=== PATIENT | female | born 1980 | race Caucasian/White ===

== ENCOUNTER 2018-09-24 10:40 | Emergency (ER) | payer SELFPAY ==
[2018-09-24 10:47] VITALS: BP 115/65; PULSE 65; TEMP 98.4; BMI 27.4
--- NOTE | 2018-09-24 11:44 | PDOC ---
History of Present Illness - General Chief Complaint: Ear Problem Stated Complaint: LT EAR PAIN Time Seen by Provider: 09/24/18 11:22 - History of Present Illness Initial Comments: 09/24/18 11:41 37-year-old female presents for evaluation of left ear pain 7 days without systemic symptoms Past History - Past Medical History Allergies/Adverse Reactions: Allergies Allergy/AdvReac Type Severity Reaction Status Date / Time No Known Allergies Allergy Verified 09/24/18 10:43 Home Medications: Ambulatory Orders Ciprofloxacin HCl/Dexameth [Ciprodex Otic Suspension] 4 drop BID 5 Days #1 bottle 09/24/18 COPD: No - Immunization History Immunization Up to Date: Yes - Suicide/Smoking/Psychosocial Hx Smoking History: Never smoked Hx Alcohol Use: No Drug/Substance Use Hx: No Review of Systems - Review of Systems Constitutional: No: Fever HEENTM: Yes: Ear Pain *Physical Exam - Vital Signs Last Vital Signs Temp Pulse Resp BP Pulse Ox 98.4 F 65 18 115/65 100 09/24/18 10:44 09/24/18 10:44 09/24/18 10:44 09/24/18 10:44 09/24/18 10:44 - Physical Exam Comments: 09/24/18 11:42 HEAD: NC/AT EYES: Conjuntiva clear Ears: Right ear canal tympanic membrane and normal. Left ear canal is normal tympanic membrane is mildly erythemic there appears to be a perforation at the 9 o'clock position NOSE: No d/c THROAT: Moist mucous membrances, oral pharanx clear, uvula midline NECK: Supple without adenopathy CARDIAC: S1 S2 LUNGS: CTA Full and Equal breath sounds ABDOMEN: Soft NT ND MS: Full ROM in all joints without edema NEUROLOGIC: No gross sensory or motor deficits, NVID SKIN: Normal color and temperature no lesions or rashes *DC/Admit/Observation/Transfer Diagnosis at time of Disposition: Tympanic membrane perforation - Discharge Dispostion Disposition: HOME Condition at time of disposition: Stable Decision to Admit order: No - Prescriptions Prescriptions: Ciprofloxacin HCl/Dexameth [Ciprodex Otic Suspension] 4 drop BID 5 Days #1 bottle - Referrals Referrals: Alec Yang MD [Staff Physician] - - Patient Instructions Printed Discharge Instructions: Ruptured Eardrum, DI for Tympanic Membrane Perforation-Adult Additional Instructions: Please use the antibiotic drops as directed. Return to the emergency room 1-2 days for further evaluation and treatment options should symptoms worsen. Follow -up with ear nose and throat doctor in 1-2 days without fail for further evaluation and treatment options. Print Language: GREEK - Post Discharge Activity
== END 2018-09-24 12:26 | disposition home or self-care (01) ==
LOC: JERFT 10:40
DX: H92.02 Otalgia, left ear (principal)
CPT/HCPCS: 99281-25

== ENCOUNTER 2021-05-18 18:30 | Emergency (ER) | payer OTHER ==
[2021-05-18 18:46] VITALS: BMI 24.9
[2021-05-18 21:25] LABS: BASO % 0.6 % (0-2.0); EOS % 2.5 % (0-4.5); HEMATOCRIT 41.9 % (32.4-45.2); HEMOGLOBIN 14.2 GM/dL (10.7-15.3); LYMPH % 35.7 % (8-40); MCH 30.8 pg (25.7-33.7); MCHC 33.8 g/dl (32.0-36.0); MEAN CELL VOLUME 90.9 fl (80-96); MEAN PLT VOLUME 7.2 fl (7.5-11.1); MONO % 6.3 % (3.8-10.2); NEUT % 54.9 % (42.8-82.8); PLATELET COUNT 306 10^3/uL (134-434); RBC 4.61 M/mm3 (3.60-5.2); RDW 13.5 % (11.6-15.6); WHITE BLOOD COUNT 8.6 K/mm3 (4.0-10.0)
[2021-05-18 21:33] LABS: EPI CELLS >36 /uL (0-25.1); HYALINE CASTS 1 /uL (0-3.1); PH,URINE 6.5 (5.0-8.0); URINE APPEARANCE CLOUDY; URINE BACTERIA 497 /uL (0-1359); URINE BILIRUBIN NEGATIVE (NEGATIVE); URINE COLOR YELLOW; URINE GLUCOSE (UA) NEGATIVE (NEGATIVE); URINE KETONE NEGATIVE (NEGATIVE); URINE LEUK ESTERASE 2+ (NEGATIVE); URINE NITRITE NEGATIVE (NEGATIVE); URINE PROTEIN NEGATIVE (NEGATIVE); URINE RBC 22 /uL (0-23.9); URINE UROBILINOGEN 0.2 mg/dL (0.2-1.0); URINE WBC 53 /uL (0-25.8)
[2021-05-18 21:54] LABS: CALCIUM 9.4 mg/dL (8.5-10.1)
[2021-05-18 21:55] LABS: ALBUMIN 3.9 g/dl (3.4-5.0); BLOOD UREA NITROGEN 17.9 mg/dL (7-18)
[2021-05-18 21:57] LABS: CREATININE 0.9 mg/dL (0.55-1.3)
[2021-05-18 21:59] LABS: BILIRUBIN,TOTAL 0.3 mg/dL (0.2-1); TOT PROT 7.5 g/dl (6.4-8.2)
[2021-05-19 00:35] VITALS: BP 125/79; PULSE 75; TEMP 98.3
== END 2021-05-19 00:35 | disposition home or self-care (01) ==
LOC: JER 18:30
DX: O26.851 Spotting complicating pregnancy, first trimester (principal); Z3A.00 Weeks of gestation of pregnancy not specified
CPT/HCPCS: 36415; 76817-TC; 80053; 81003; 84702; 85025; 86850; 86900; 86901; 87086; 87186; 99284-25

== ENCOUNTER 2021-05-20 09:16 | Emergency (ER) | payer OTHER ==
[2021-05-20 09:27] VITALS: TEMP 98.1; BMI 24.8
[2021-05-20] MEDS ORDERED: ACETAMINOPHEN 500 MG TABLET (FP) PO ONE (09:43)
[2021-05-20] MEDS ORDERED: ACETAMINOPHEN 325 MG TABLET (FP) ONE (10:01)
[2021-05-20 10:48] LABS: BASO % 0.5 % (0-2.0); EOS % 1.8 % (0-4.5); HEMATOCRIT 40.1 % (32.4-45.2); HEMOGLOBIN 13.9 GM/dL (10.7-15.3); LYMPH % 23.9 % (8-40); MCH 31.2 pg (25.7-33.7); MCHC 34.6 g/dl (32.0-36.0); MEAN CELL VOLUME 90.2 fl (80-96); MONO % 4.6 % (3.8-10.2); NEUT % 69.2 % (42.8-82.8); PLATELET COUNT 271 10^3/uL (134-434); RBC 4.45 M/mm3 (3.60-5.2); RDW 13.5 % (11.6-15.6); WHITE BLOOD COUNT 8.5 K/mm3 (4.0-10.0)
[2021-05-20] MEDS ORDERED: IBUPROFEN 400 MG TABLET (FP) PO ONE ×2 (13:08→13:13)
[2021-05-20] MEDS ORDERED: MISOPROSTOL 200 MCG TABLET PO ONE (13:30)
[2021-05-20 15:16] VITALS: BP 140/83; PULSE 83
== END 2021-05-20 14:30 | disposition home or self-care (01) ==
LOC: JER 09:16
DX: O20.9 Hemorrhage in early pregnancy, unspecified (principal); Z3A.10 10 weeks gestation of pregnancy
CPT/HCPCS: 36415; 76817-TC; 84702; 85025; 99284-25

== ENCOUNTER 2022-04-14 11:59 | Emergency (ER) | payer OTHER ==
[2022-04-14 12:12] VITALS: TEMP 97.7; BMI 27.6
[2022-04-14] MEDS ORDERED: LABETALOL HCL 100 MG TABLET (FP) PO ONE (13:01)
[2022-04-14] MEDS ORDERED: LABETALOL HCL 100 MG TABLET (FP) ONE (13:16)
[2022-04-14 13:53] LABS: BASO % 0.5 % (0-2.0); EOS % 0.6 % (0-4.5); HEMATOCRIT 39.5 % (32.4-45.2); HEMOGLOBIN 13.7 GM/dL (10.7-15.3); LYMPH % 21.3 % (8-40); MCH 31.7 pg (25.7-33.7); MCHC 34.7 g/dl (32.0-36.0); MEAN CELL VOLUME 91.3 fl (80-96); MEAN PLT VOLUME 7.6 fl (7.5-11.1); MONO % 5.3 % (3.8-10.2); NEUT % 72.3 % (42.8-82.8); PLATELET COUNT 323 10^3/uL (134-434); RBC 4.32 M/mm3 (3.60-5.2); RDW 13.4 % (11.6-15.6); WHITE BLOOD COUNT 11.5 K/mm3 (4.0-10.0)
[2022-04-14 14:02] LABS: INR 1.05 (0.83-1.09); PROTHROMBIN TIME (PATIENT) 12.2 SEC (9.7-13.0)
[2022-04-14 14:05] LABS: ACTIVATED PTT 28.7 SECONDS (25.2-36.5)
[2022-04-14 14:20] LABS: ALBUMIN 3.2 g/dl (3.4-5.0); BLOOD UREA NITROGEN 6.8 mg/dL (7-18); CALCIUM 9.4 mg/dL (8.5-10.1)
[2022-04-14 14:23] LABS: CREATININE 0.5 mg/dL (0.55-1.3)
[2022-04-14 14:25] LABS: BILIRUBIN,TOTAL 0.3 mg/dL (0.2-1); TOT PROT 7.1 g/dl (6.4-8.2)
[2022-04-14 15:27] LABS: EPI CELLS 17 /uL (0-25.1); HYALINE CASTS 0 /uL (0-3.1); PH,URINE 6.5 (5.0-8.0); URINE APPEARANCE CLEAR; URINE BACTERIA 710 /uL (0-1359); URINE BILIRUBIN NEGATIVE (NEGATIVE); URINE COLOR YELLOW; URINE GLUCOSE (UA) NEGATIVE (NEGATIVE); URINE KETONE NEGATIVE (NEGATIVE); URINE LEUK ESTERASE 2+ (NEGATIVE); URINE NITRITE NEGATIVE (NEGATIVE); URINE PROTEIN NEGATIVE (NEGATIVE); URINE RBC 13 /uL (0-23.9); URINE UROBILINOGEN 0.2 mg/dL (0.2-1.0); URINE WBC 31 /uL (0-25.8)
[2022-04-14 15:45] VITALS: BP 134/84; PULSE 87; RESP 18
== END 2022-04-14 16:31 | disposition home or self-care (01) ==
LOC: JER 11:59
DX: O16.2 Unspecified maternal hypertension, second trimester (principal); Z3A.16 16 weeks gestation of pregnancy
CPT/HCPCS: 36415; 76815-TC; 80053; 81003; 84443; 84702; 85025; 85610; 85730; 87086; 93005; 93010; 99285-25

== ENCOUNTER 2022-06-05 11:13 | Inpatient (IN) | payer OTHER ==
[2022-06-05] MEDS ORDERED: LACTATED RINGERS SOLUTION 1000 ML INFUS.BAG IV ONE ×2 (12:43→15:55)
[2022-06-05 13:40] LABS: HEMATOCRIT 37.9 % (32.4-45.2); HEMOGLOBIN 12.9 GM/dL (10.7-15.3); MCH 30.9 pg (25.7-33.7); MCHC 33.9 g/dl (32.0-36.0); MEAN PLT VOLUME 7.8 fl (7.5-11.1); PLATELET COUNT 280 10^3/uL (134-434); RBC 4.17 M/mm3 (3.60-5.2); RDW 13.1 % (11.6-15.6); WHITE BLOOD COUNT 15.9 K/mm3 (4.0-10.0)
[2022-06-05 14:08] LABS: CALCIUM 9.1 mg/dL (8.5-10.1)
[2022-06-05 14:09] LABS: ALBUMIN 2.8 g/dl (3.4-5.0); ANISOCYTOSIS 0; BLOOD UREA NITROGEN 8.1 mg/dL (7-18); HELMET CELLS 0; HOWELL-JOLLY BODIES 0; MACROCYTOSIS 0; OVALOCYTE 0; ROULEAU 0; SICKELED CELLS 0; TARGET CELLS 0; TEAR DROP CELLS 0; TOXIC GRANULATION 0
[2022-06-05 14:12] LABS: CREATININE 0.8 mg/dL (0.55-1.3)
[2022-06-05 14:13] LABS: TOT PROT 6.5 g/dl (6.4-8.2)
[2022-06-05 14:14] LABS: BILIRUBIN,TOTAL 0.4 mg/dL (0.2-1)
[2022-06-05 14:26] LABS: EPI CELLS 10 /uL (0-25.1); HYALINE CASTS 2 /uL (0-3.1); URINE APPEARANCE CLEAR; URINE BACTERIA >9,000 /uL (0-1359); URINE BILIRUBIN NEGATIVE (NEGATIVE); URINE COLOR YELLOW; URINE GLUCOSE (UA) NEGATIVE (NEGATIVE); URINE KETONE TRACE (NEGATIVE); URINE LEUK ESTERASE 2+ (NEGATIVE); URINE NITRITE POSITIVE (NEGATIVE); URINE PROTEIN NEGATIVE (NEGATIVE); URINE RBC 72 /uL (0-23.9); URINE UROBILINOGEN 0.2 mg/dL (0.2-1.0); URINE WBC 800 /uL (0-25.8)
[2022-06-05] MEDS ORDERED: CEFTRIAXONE 1 GM in DEXTROSE 5%-WATER - 100 ML IVPB ONE (14:29)
[2022-06-05] MEDS ORDERED: CEFTRIAXONE 1 GM/50 ML BAG ONE (14:40)
[2022-06-05] MEDS: ACETAMINOPHEN 500 MG TABLET (FP) PO PRN ×2 (17:40→22:24)
[2022-06-05 18:32] VITALS: BMI 29.9
[2022-06-05] MEDS: LABETALOL HCL 200 MG TABLET (FP) PO SCH (22:24)
[2022-06-06] MEDS: ACETAMINOPHEN 500 MG TABLET (FP) PO PRN ×3 (05:38→21:09)
[2022-06-06] MEDS: LABETALOL HCL 200 MG TABLET (FP) PO SCH ×2 (09:23→21:06)
[2022-06-06] MEDS ORDERED: CEFTRIAXONE 1 GM in DEXTROSE 5%-WATER - 50 ML IVPB SCH (10:30)
[2022-06-06] MEDS ORDERED: CEFTRIAXONE 1 GM in DEXTROSE 5%-WATER - 50 ML IVPB ONE (16:15)
[2022-06-07] MEDS: ACETAMINOPHEN 500 MG TABLET (FP) PO PRN ×3 (03:10→22:46)
[2022-06-07 08:59] LABS: BASO % 0.4 % (0-2.0); EOS % 0.8 % (0-4.5); HEMOGLOBIN 11.5 GM/dL (10.7-15.3); LYMPH % 9.3 % (8-40); MCH 30.8 pg (25.7-33.7); MCHC 33.7 g/dl (32.0-36.0); MEAN CELL VOLUME 91.6 fl (80-96); MEAN PLT VOLUME 8.2 fl (7.5-11.1); MONO % 8.3 % (3.8-10.2); NEUT % 81.2 % (42.8-82.8); PLATELET COUNT 221 10^3/uL (134-434); RBC 3.72 M/mm3 (3.60-5.2); RDW 13.4 % (11.6-15.6); WHITE BLOOD COUNT 13.3 K/mm3 (4.0-10.0)
[2022-06-07] MEDS: LABETALOL HCL 200 MG TABLET (FP) PO SCH ×2 (09:11→21:37)
[2022-06-07] MEDS: CEFTRIAXONE 2 GM in DEXTROSE 5%-WATER 100 ML IVPB SCH (09:44)
[2022-06-08] MEDS: ACETAMINOPHEN 500 MG TABLET (FP) PO PRN ×3 (04:52→17:32)
[2022-06-08] MEDS: CEFTRIAXONE 2 GM in DEXTROSE 5%-WATER 100 ML IVPB SCH (09:12)
[2022-06-08] MEDS: LABETALOL HCL 200 MG TABLET (FP) PO SCH ×2 (09:14→21:50)
[2022-06-08 13:09] LABS: BASO % 0.3 % (0-2.0); EOS % 0.9 % (0-4.5); HEMATOCRIT 33.7 % (32.4-45.2); HEMOGLOBIN 11.8 GM/dL (10.7-15.3); LYMPH % 13.2 % (8-40); MCHC 35.1 g/dl (32.0-36.0); MEAN CELL VOLUME 90.9 fl (80-96); MEAN PLT VOLUME 8.2 fl (7.5-11.1); MONO % 6.8 % (3.8-10.2); NEUT % 78.8 % (42.8-82.8); PLATELET COUNT 210 10^3/uL (134-434); RDW 12.8 % (11.6-15.6); WHITE BLOOD COUNT 10.6 K/mm3 (4.0-10.0)
[2022-06-08] MEDS: DOCUSATE SODIUM 100 MG CAPSULE (FP) PO SCH (18:55)
[2022-06-09] MEDS: DOCUSATE SODIUM 100 MG CAPSULE (FP) PO SCH (10:11)
[2022-06-09] MEDS: CEFTRIAXONE 2 GM in DEXTROSE 5%-WATER 100 ML IVPB SCH (10:11)
[2022-06-09] MEDS: LABETALOL HCL 200 MG TABLET (FP) PO SCH ×2 (10:12→22:15)
[2022-06-10] MEDS: CEFTRIAXONE 2 GM in DEXTROSE 5%-WATER 100 ML IVPB SCH (10:29)
[2022-06-10] MEDS: DOCUSATE SODIUM 100 MG CAPSULE (FP) PO SCH (10:29)
[2022-06-10] MEDS: LABETALOL HCL 200 MG TABLET (FP) PO SCH ×2 (10:30→22:35)
[2022-06-10] MEDS: ACETAMINOPHEN 500 MG TABLET (FP) PO PRN (16:50)
[2022-06-11] MEDS: ACETAMINOPHEN 500 MG TABLET (FP) PO PRN ×2 (01:04→08:00)
[2022-06-11 08:23] LABS: BASO % 0.3 % (0-2.0); EOS % 1.6 % (0-4.5); HEMATOCRIT 32.7 % (32.4-45.2); HEMOGLOBIN 11.7 GM/dL (10.7-15.3); LYMPH % 17.6 % (8-40); MCHC 35.6 g/dl (32.0-36.0); MEAN CELL VOLUME 89.8 fl (80-96); MEAN PLT VOLUME 7.8 fl (7.5-11.1); MONO % 7.5 % (3.8-10.2); PLATELET COUNT 240 10^3/uL (134-434); RBC 3.64 M/mm3 (3.60-5.2); RDW 12.7 % (11.6-15.6); WHITE BLOOD COUNT 10.2 K/mm3 (4.0-10.0)
[2022-06-11] MEDS: LABETALOL HCL 200 MG TABLET (FP) PO SCH ×2 (09:23→21:14)
[2022-06-11] MEDS: DOCUSATE SODIUM 100 MG CAPSULE (FP) PO SCH (09:24)
[2022-06-11] MEDS: CEFTRIAXONE 2 GM in DEXTROSE 5%-WATER 100 ML IVPB SCH (10:49)
[2022-06-12 05:57] VITALS: PULSE 84
[2022-06-12 09:16] VITALS: BP 119/76; RESP 18; TEMP 98
[2022-06-12] MEDS: LABETALOL HCL 200 MG TABLET (FP) PO SCH (10:28)
[2022-06-12] MEDS: CEFTRIAXONE 2 GM in DEXTROSE 5%-WATER 100 ML IVPB SCH (10:29)
[2022-06-12] MEDS: DOCUSATE SODIUM 100 MG CAPSULE (FP) PO SCH (10:29)
== END 2022-06-12 10:30 | disposition home or self-care (01) | DRG 566 ==
LOC: JER 11:13 → JERFT 11:13 → JERBED 14:31 → J3W 16:57
PROVIDERS: ADMIT Obstetrics & Gynecology; ATTEND Obstetrics & Gynecology
DX: O23.03 Infections of kidney in pregnancy, third trimester (principal); O16.3 Unspecified maternal hypertension, third trimester; O98.913 Unspecified maternal infectious and parasitic disease complicating pregnancy, third trimester; R78.81 Bacteremia; B96.4 Proteus (mirabilis) (morganii) as the cause of diseases classified elsewhere; Z91.148 Patient's other noncompliance with medication regimen for other reason
CPT/HCPCS: 0241U-QW; 36415; 76700-TC; 76775-TC; 80053; 81003; 85025; 87040; 87086; 87186; 99285-25

== ENCOUNTER 2022-09-14 09:22 | Inpatient (IN) | payer OTHER ==
[2022-09-14] MEDS ORDERED: DINOPROSTONE 10 MG VAGINAL SUPPOSITORY VG STA (09:53)
[2022-09-14] MEDS ORDERED: ELECTROLYTE-148 SOLN 1,000 ML IV SCH (10:00)
[2022-09-14] MEDS: ELECTROLYTE-148 SOLN 1,000 ML IV SCH ×2 (10:20→17:30)
[2022-09-14] MEDS ORDERED: LABETALOL HCL 100 MG TABLET (FP) ONE ×2 (10:42→21:51)
[2022-09-14 10:58] VITALS: BMI 31.1
[2022-09-14] MEDS ORDERED: LABETALOL HCL 200 MG TABLET (FP) PO ONE (11:07)
[2022-09-14] MEDS: LABETALOL HCL 100 MG TABLET (FP) PO SCH (22:00)
[2022-09-14] MEDS ORDERED: OXYTOCIN 30 UNITS in 0.9% NS 30 UNIT/500 ML INFUS.BAG IVPB ONE (23:50)
[2022-09-15] MEDS: OXYTOCIN 30 UNITS in 0.9% NS 30 UNIT/500 ML INFUS.BAG IVPB SCH ×2 (00:15→22:53)
[2022-09-15] MEDS ORDERED: LABETALOL HCL 100 MG TABLET (FP) ONE ×3 (07:33→10:18)
[2022-09-15] MEDS ORDERED: LABETALOL HCL 100 MG TABLET (FP) PO ONE (07:35)
[2022-09-15] MEDS: ELECTROLYTE-148 SOLN 1,000 ML IV SCH (08:10)
[2022-09-15] MEDS ORDERED: FENTANYL/BUPIVACAINE/NS/PF - PCEA - 50 ML DISP.SYRIN EP ONE (09:31)
[2022-09-15] MEDS ORDERED: NALOXONE HCL 0.4 MG/ML VIAL IVPUSH PRN (10:20)
[2022-09-15] MEDS: LABETALOL HCL 100 MG TABLET (FP) PO SCH ×2 (10:22→21:32)
[2022-09-15] MEDS ORDERED: FENTANYL/BUPIVACAINE/NS/PF - PCEA - 50 ML DISP.SYRIN EP SCH (10:30)
[2022-09-15] MEDS ORDERED: OXYTOCIN 20 UNITS in 0.9% NS 20 UNIT/1,000 ML INFUS.BAG IV ONE (12:14)
[2022-09-15] MEDS ORDERED: BENZOCAINE 20% 57 GM BOTTLE TP PRN (13:01)
[2022-09-15] MEDS ORDERED: IBUPROFEN 600 MG TABLET (FP) PO PRN (13:01)
[2022-09-15] MEDS ORDERED: METHYLERGONOVINE MALEATE 0.2 MG/1 ML AMP IM PRN (13:01)
[2022-09-15] MEDS ORDERED: BISACODYL 10 MG SUPP.RECT RC PRN (13:01)
[2022-09-15] MEDS ORDERED: BENZOCAINE 28 GM HEMORRHOIDAL OINTMENT TP PRN (13:01)
[2022-09-15] MEDS ORDERED: WITCH HAZEL 50% (TUCKS) 40 PAD/JAR PAD TP PRN (13:01)
[2022-09-15] MEDS ORDERED: OXYTOCIN 20 UNITS in 0.9% NS 20 UNIT/1,000 ML INFUS.BAG IV SCH (13:15)
[2022-09-16 08:05] LABS: BASO % 0.4 % (0-2.0); EOS % 1.3 % (0-4.5); HEMATOCRIT 39.3 % (32.4-45.2); LYMPH % 19.8 % (8-40); MCH 30.9 pg (25.7-33.7); MCHC 33.1 g/dl (32.0-36.0); MEAN CELL VOLUME 93.5 fl (80-96); MEAN PLT VOLUME 8.8 fl (7.5-11.1); MONO % 6.8 % (3.8-10.2); NEUT % 71.7 % (42.8-82.8); PLATELET COUNT 256 10^3/uL (134-434); RBC 4.21 M/mm3 (3.60-5.2); RDW 13.2 % (11.6-15.6); WHITE BLOOD COUNT 12.1 K/mm3 (4.0-10.0)
[2022-09-16] MEDS: LABETALOL HCL 100 MG TABLET (FP) PO SCH ×2 (09:05→21:41)
[2022-09-16] MEDS: PRENATAL VITAMINS W/ FOLIC ACID TABLET (FP) PO SCH (09:06)
[2022-09-16] MEDS: ACETAMINOPHEN 325 MG TABLET (FP) PO PRN (18:13)
[2022-09-16] MEDS ORDERED: SENNOSIDES/DOCUSATE COMBO (SENNA PLUS) TABLET (UD) PO PRN (22:00)
[2022-09-17 05:30] VITALS: RESP 18
[2022-09-17] MEDS: ACETAMINOPHEN 325 MG TABLET (FP) PO PRN (05:31)
[2022-09-17 08:37] VITALS: BP 141/87; PULSE 72; TEMP 98.5
[2022-09-17] MEDS: LABETALOL HCL 100 MG TABLET (FP) PO SCH (09:49)
[2022-09-17] MEDS: PRENATAL VITAMINS W/ FOLIC ACID TABLET (FP) PO SCH (09:49)
== END 2022-09-17 14:11 | disposition home or self-care (01) | DRG 560 ==
LOC: JLDR 09:22 → J3W 09-15 14:50
PROVIDERS: ADMIT Obstetrics & Gynecology; ATTEND Obstetrics & Gynecology
PROC: 3E0P7VZ Introduction of Hormone into Female Reproductive, Via Natural or Artificial Opening (ICD-10-PCS; 2022-09-14)
PROC: 10E0XZZ Delivery of Products of Conception, External Approach (ICD-10-PCS; principal; 2022-09-15)
PROC: 0HQ9XZZ Repair Perineum Skin, External Approach (ICD-10-PCS; 2022-09-15)
PROC: 0W8NXZZ Division of Female Perineum, External Approach (ICD-10-PCS; 2022-09-15)
DX: O70.0 First degree perineal laceration during delivery (principal); O24.429 Gestational diabetes mellitus in childbirth, unspecified control; O10.92 Unspecified pre-existing hypertension complicating childbirth; Z3A.37 37 weeks gestation of pregnancy; Z37.0 Single live birth
CPT/HCPCS: 36415; 80053; 82570; 82962; 84156; 85025; 85610; 86780; 86850; 86900; 86901